=== PATIENT | female | born 1995 | race Caucasian/White ===

== ENCOUNTER 2019-11-05 14:45 | Emergency (ER) | payer BC ==
--- NOTE | 2019-11-05 15:08 | EDM.PDOC ---
ED HPI GENERAL MEDICAL PROBLEM - General Chief Complaint: Skin Complaint Stated Complaint: INFECTION IN LEG Time Seen by Provider: 11/05/19 14:49 Source of Information: Reports: Patient History Limitations: Reports: No Limitations - History of Present Illness INITIAL COMMENTS - FREE TEXT/NARRATIVE: HISTORY AND PHYSICAL: History of present illness: Patient is a 24-year-old female who presents to the emergency room with complaints of an abscess to her left upper calf. She also has a healing abscess to her left hand and left upper antecubital space. She states these "abscesses" started after an ER visit in [place] for kidney stones. She reports the 2 arm "infection" sites are from the nurses' IV pokes. She does have scar tissue to her antecubital spaces bilaterally and does have a history of IV drug use; although states these are not from personal IV insertion. Patient denies any fever, chills, headache, change in vision, syncope or near syncope. Denies any chest pain, back pain, shortness of breath or cough. Denies any abdominal pain, nausea, vomiting, diarrhea, constipation or dysuria. Has not noted any blood in urine or stool. Patient has been eating and drinking appropriately. Review of systems: As per history of present illness and below otherwise all systems reviewed and negative. Past medical history: As per history of present illness and as reviewed below otherwise noncontributory. Surgical history: As per history of present illness and as reviewed below otherwise noncontributory. Social history: See social history for further information Family history: As per history of present illness and as reviewed below otherwise noncontributory. Physical exam: General: Well developed and well nourished. Alert and orientated x 3. Nontoxic in appearance and in no acute distress. Vital signs are stable and have been reviewed by me. Nursing notes were reviewed. HEENT: Atraumatic, normocephalic, pupils equal and reactive bilaterally, negativ e for conjunctival pallor or scleral icterus, mucous membranes moist, TMs normal bilaterally, throat clear, neck supple, nontender, trachea midline. No drooling or trismus noted. No meningeal signs. No hot potato voice noted. Lungs: Clear to auscultation, breath sounds equal bilaterally, chest nontender. Normal work of breathing, no accessory muscles used. Heart: S1S2, regular rate and rhythm without overt murmur Abdomen: Soft, nondistended, nontender. Negative for masses or hepatosplenomegaly. Negative for costovertebral tenderness. Skin: Healed scar tissue to bilateral antecubital spaces. Localized area of redness with scar tissue to right upper AC (bicep area) non fluctuant, approximately the size of quarter. Quarter sized area of lcoalizedredness, nonfluctuant to top of right wrist. Golf ball sized abscess to left proximal mid calf. Otherwise skin is intact, warm, dry. No lesions or rashes noted. Hematologic: No petechiae or purpra. Mucosa appropriate color and normal nail bed color and refill. Extremities: Atraumatic, moves all extremities per self without difficulty or deficits, negative for cords or calf pain. Neurovascular unremarkable. Neuro: Awake, alert, oriented. Cranial nerves II through XII unremarkable. Cerebellum unremarkable. Motor and sensory unremarkable throughout. Exam nonfocal. Psychiatric: Mood and affect are appropriate. Normal thought process. Answering questions appropriately. Notes: Patient is disgruntled when the nurse told her she was going to give her IV toradol. Patient states "I'm an IV drug user, Toradol doesn't do shit for me" - she is requesting Dilaudid. Patient is refusing to allow me to drain the abscess on the leg. Multiple attempts were made with education, continues to refuse. Patient does have a leukocytosis. I strongly encouraged her to be admitted which she says "I will think about it". At this time she is agreeable to IV vancomycin. Patient is anxious to be discharged. Vital signs are stable. She appears improved. I did again strongly encourage admission which she declines. She states she will follow-up in [facility], where she lives. I have spoken with the patient and discussed today's findings and the seriousness of not taking care of the abscesses, in addition to providing specific details for plan of care. We discussed in great detail signs and symptoms that would prompt them to return to the Emergency Department. Medication, follow up and supportive care measures were reviewed and discussed. Voices understanding. Denies any further questions or concerns at this time. Diagnostics: CBC, CMP, BCx 2, Lactic Therapeutics: IV fluids, Toradol, Bactrim, Vancomycin Prescription: Bactrim DS Impression: Abscess Plan: 1. These keep the skin clean, warm, and dry. Gentle heat compresses to the a bscess area. Avoid picking or poking the area. If the redness becomes worse please return to the emergency room to have this drained. 2. Take the antibiotic as prescribed. You can alternate Tylenol and ibuprofen as needed for pain management. 3. We encourage you to follow up with your primary care provider and/or recommended specialist in the next few days for re-evaluation and further care/management. If your symptoms should worsen, new symptoms develop or any of the signs and symptoms we discussed should arise please return to the emergency room or call 911 (if needed). Definitive disposition and diagnosis as appropriate pending reevaluation and review of above. L leg Pain Score (Numeric/FACES): 10 - Related Data Allergies Allergy/AdvReac Type Severity Reaction Status Date / Time codeine Allergy Rash Verified 11/05/19 15:02 Home Meds: Home Meds ClonazePAM [KlonoPIN] 1 mg PO DAILY 11/05/19 [History] Sulfamethoxazole/Trimethoprim [Bactrim Ds Tablet] 1 each PO BID 10 Days #20 tablet 11/05/19 [Rx] ED ROS GENERAL - Review of Systems Review Of Systems: Comprehensive ROS is negative, except as noted in HPI. ED EXAM, SKIN/RASH Exam: See Below (See dictation) Course - Vital Signs Last Recorded V/S: Last Vital Signs Temp 99.4 F 11/05/19 15:04 Pulse 110 H 11/05/19 15:04 Resp 20 11/05/19 15:04 BP 128/79 11/05/19 15:04 Pulse Ox 98 11/05/19 15:04 - Orders/Labs/Meds Orders: Active Orders 24 hr Category Date Time Status CULTURE BLOOD [BC] Stat Lab 11/05/19 15:40 Received CULTURE BLOOD [BC] Stat Lab 11/05/19 16:13 Received Blood Culture x2 Reflex Set [OM.PC] Stat Oth 11/05/19 15:17 Ordered Labs: Laboratory Tests 11/05/19 11/05/19 11/05/19 Range/Units 15:40 15:40 15:40 WBC 18.79 H (4.0-11.0) K/uL RBC 4.01 L (4.30-5.90) M/uL Hgb 11.0 L (12.0-16.0) g/dL Hct 33.8 L (36.0-46.0) % MCV 84.3 (80.0-98.0) fL MCH 27.4 (27.0-32.0) pg MCHC 32.5 (31.0-37.0) g/dL RDW Std Deviation 42.7 (28.0-62.0) fl RDW Coeff of Heena 14 (11.0-15.0) % Plt Count 540 H (150-400) K/uL MPV 10.20 (7.40-12.00) fL Neut % (Auto) 78.6 (48.0-80.0) % Lymph % (Auto) 15.1 L (16.0-40.0) % Meagher % (Auto) 5.7 (0.0-15.0) % Eos % (Auto) 0.3 (0.0-7.0) % Baso % (Auto) 0.3 (0.0-1.5) % Neut # (Auto) 14.8 H (1.4-5.7) K/uL Lymph # (Auto) 2.8 H (0.6-2.4) K/uL Meagher # (Auto) 1.1 H (0.0-0.8) K/uL Eos # (Auto) 0.1 (0.0-0.7) K/uL Baso # (Auto) 0.1 (0.0-0.1) K/uL Lactate 1.7 (0.20-2.00) mmol/L Sodium 136 (136-145) mmol/L Potassium 3.3 L (3.5-5.1) mmol/L Chloride 100 (98-107) mmol/L Carbon Dioxide 24.4 (21.0-32.0) mmol/L BUN 8 (7.0-18.0) mg/dL Creatinine 0.9 (0.6-1.0) mg/dL Est Cr Clr Drug Dosing 75.58 mL/min Estimated GFR (MDRD) > 60.0 ml/min Glucose 107 H (74-106) mg/dL Calcium 8.9 (8.5-10.1) mg/dL Total Bilirubin 0.5 (0.2-1.0) mg/dL AST 15 (15-37) IU/L ALT 16 (14-63) IU/L Alkaline Phosphatase 108 (46-116) U/L Total Protein 8.3 H (6.4-8.2) g/dL Albumin 3.2 L (3.4-5.0) g/dL Globulin 5.1 H (2.6-4.0) g/dL Albumin/Globulin Ratio 0.6 L (0.9-1.6) Meds: Medications Discontinued Medications Generic Name Dose Route Start Last Admin Trade Name Freq PRN Reason Stop Dose Admin Sodium Chloride 1,000 mls @ 999 mls/hr 11/05/19 15:40 11/05/19 16:10 Normal Saline IV 11/05/19 16:40 999 mls/hr STAT ONE Administration Vancomycin HCl 1 gm/ Sodium 250 mls @ 166 mls/hr 11/05/19 16:25 11/05/19 16:43 Chloride IV 11/05/19 17:55 166 mls/hr ONETIME ONE Administration Sodium Chloride 1,000 mls @ 999 mls/hr 11/05/19 17:00 11/05/19 19:33 Normal Saline IV 11/05/19 18:00 Not Given STAT ONE Ketorolac Tromethamine 60 mg 11/05/19 15:17 11/05/19 16:17 Toradol IM 11/05/19 15:18 Not Given ONETIME ONE Ketorolac Tromethamine 30 mg 11/05/19 15:40 11/05/19 16:14 Toradol IVPUSH 11/05/19 15:41 30 mg ONETIME ONE Administration Lidocaine/Epinephrine 10 ml 11/05/19 15:34 11/05/19 19:33 Xylocaine 1% With Epinephrine 1:100,000 INJECT 11/05/19 15:35 Not Given ONETIME ONE Morphine Sulfate 4 mg 11/05/19 16:10 11/05/19 16:15 Morphine IVPUSH 11/05/19 16:11 4 mg ONETIME ONE Administration Trimethoprim/Sulfamethoxazole 1 tab 11/05/19 15:17 11/05/19 16:13 Septra Ds PO 11/05/19 15:18 1 tab ONETIME ONE Administration Departure - Departure Time of Disposition: 18:16 Disposition: Home, Self-Care 01 Clinical Impression: Abscess - Discharge Information Prescriptions: Sulfamethoxazole/Trimethoprim [Bactrim Ds Tablet] 1 each PO BID 10 Days #20 tablet Instructions: Skin Abscess, [id number] Referrals: PCP,None [Primary Care Provider] - Forms: ED Department Discharge Additional Instructions: The following information is given to patients seen in the emergency department who are being discharged to home. This information is to outline your options for follow-up care. We provide all patients seen in our emergency department with a follow-up referral. The need for follow-up, as well as the timing and circumstances, are variable depending upon the specifics of your emergency department visit. If you don't have a primary care physician on staff, we will provide you with a referral. We always advise you to contact your personal physician following an emergency department visit to inform them of the circumstance of the visit and for follow-up with them and/or the need for any referrals to a consulting specialist. The emergency department will also refer you to a specialist when appropriate. This referral assures that you have the opportunity for follow-up care with a specialist. All of these measure are taken in an effort to provide you with optimal care, which includes your follow-up. Under all circumstances we always encourage you to contact your private physician who remains a resource for coordinating your care. When calling for follow-up care, please make the office aware that this follow-up is from your re cent emergency room visit. If for any reason you are refused follow-up, please contact the [facility] at and asked to speak to the emergency department charge nurse. [facility] [address] [place] [id number] [address] [address] Thank you for choosing the [facility] emergency department in [place] for your medical needs today. It was a pleasure caring for you. Today you were seen in the emergency department for skin infection/abscess. 1. These keep the skin clean, warm, and dry. Gentle heat compresses to the abscess area. Avoid picking or poking the area. If the redness becomes worse please return to the emergency room to have this drained. 2. Take the antibiotic as prescribed. You can alternate Tylenol and ibuprofen as needed for pain management. 3. We encourage you to follow up with your primary care provider and/or recommended specialist in the next few days for re-evaluation and further care/management. If your symptoms should worsen, new symptoms develop or any of the signs and symptoms we discussed should arise please return to the emergency room or call 911 (if needed). Sepsis Event Note (ED) - Focused Exam Vital Signs: Vital Signs Temp Pulse Resp BP Pulse Ox 11/05/19 15:04 99.4 F 110 H 20 128/79 98 - My Orders Last 24 Hours: My Active Orders 11/05/19 15:17 Blood Culture x2 Reflex Set [OM.PC] Stat 11/05/19 15:40 CULTURE BLOOD [BC] Stat 11/05/19 16:13 CULTURE BLOOD [BC] Stat - Assessment/Plan Last 24 Hours: My Active Orders 11/05/19 15:17 Blood Culture x2 Reflex Set [OM.PC] Stat 11/05/19 15:40 CULTURE BLOOD [BC] Stat 11/05/19 16:13 CULTURE BLOOD [BC] Stat
[2019-11-05] MEDS ORDERED: Sulfamethoxazole/Trimethoprim 800-160 MG Tab PO ONE (15:17)
[2019-11-05] MEDS ORDERED: Ketorolac 60 MG/2 ML SDV IM ONE (15:17)
[2019-11-05] MEDS ORDERED: Lidocaine 1% with EPINEPHrine 1:100,000 10 ML MDV INJECT ONE (15:34)
[2019-11-05] MEDS ORDERED: Ketorolac 30 MG/ML SDV IVPUSH ONE (15:40)
[2019-11-05] MEDS ORDERED: Sodium Chloride 0.9% 1,000 ML IV ONE ×2 (15:40→17:00)
[2019-11-05] MEDS ORDERED: Morphine 4 MG/ML Syringe IVPUSH ONE (16:10)
[2019-11-05 16:16] LABS: BLOOD UREA NITROGEN,BUN 8 mg/dL (7.0-18.0); CARBON DIOXIDE,CO2 24.4 mmol/L (21.0-32.0); CHLORIDE,CL 100 mmol/L (98-107); GLUCOSE RANDOM 107 mg/dL (74-106); POTASSIUM,K 3.3 mmol/L (3.5-5.1); SODIUM,NA 136 mmol/L (136-145)
== END 2019-11-05 18:25 | disposition home or self-care (01) ==
LOC: MW.ED 14:45
DX: L02.416 Cutaneous abscess of left lower limb (principal); D72.829 Elevated white blood cell count, unspecified; Z88.5 Allergy status to narcotic agent
CPT/HCPCS: 36415; 80053; 83605; 85025; 87040; 96361; 96365; 96366; 96375; 99283; A9270; J1885; J2270; J3370; J7030; J7050